=== PATIENT | female | born 1980 | race Caucasian/White ===

== ENCOUNTER → 2018-11-05 | Outpatient (CLI) | payer MEDICAID ==
--- NOTE | 2018-11-05 10:57 | WOMENS IMAGING REPORT ---
EXAM DESCRIPTION: BILAT SCREENING MAMMO W/CAD COMPLETED DATE/TIME: 11/05/2018 7:39 am REASON FOR STUDY: ROUTINE BILATERAL SCREENING;Z12.31 Z12.31 ENCNTR SCREEN MAMMOGRAM FOR MALIGNANT N EOPLASM OF CLOVER COMPARISON: 2013 TECHNIQUE: Standard craniocaudal and mediolateral oblique views of each breast recorded using [employer] acquisition. LIMITATIONS: None. FINDINGS: No suspicious masses, suspicious calcifications or architectural distortion. No areas of s uspicion. Read with the assistance of CAD. .[facility] - R2 Information Security Specialist Version 9.2 IMPRESSION: ASSESSMENT: Negative MAMMOGRAM. BIRADS 1 BREAST DENSITY: b. There are scattered areas of fibroglandular density. BIRAD: 1 NEGATIVE RECOMMENDATION: ROUTINE SCREENING COMMENT: The patient has been notified of the results by letter per [place] requirements. Additional no tification policies are in place for contacting patient with suspicious or incomplete findings. Quality ID #[id number]: The [employer] recommends an annual screening mammogram for women aged 40 years or over. This facility utilizes a reminder system to ensure that all patients receive reminder letters, and/or direct phone calls for appointments. This includes reminders for routine scr eening mammograms, diagnostic mammograms, or other Breast Imaging Interventions when appropriate. Th is patient will be placed in the appropriate reminder system. TECHNICAL DOCUMENTATION: FINDING NUMBER: (1) ASSESSMENT: (1) JOB ID: [id number] [employer]- All Rights Reserved Reading location - IP/workstation name: [email or web address]
== END ==
LOC: WI 08:25
PROVIDERS: ATTEND Family Medicine
DX: Z12.31 Encounter for screening mammogram for malignant neoplasm of breast (principal)
CPT/HCPCS: 77067

== ENCOUNTER 2019-08-17 20:51 | Emergency (ER) | payer MEDICAID ==
[2019-08-17] MEDS ORDERED: IPRATROPIUM/ALBUTEROL 0.5-2.5 MG/3 ML AMPUL NEB ONE (21:55)
[2019-08-17] MEDS ORDERED: PREDNISONE 20 MG TABLET PO ONE (21:58)
--- NOTE | 2019-08-17 21:59 | ER Document Report ---
ED Medical Screen (RME) - General Chief Complaint: Cold Symptoms Stated Complaint: COUGH,SORE THORAT,EAR PAIN Time Seen by Provider: 08/17/19 21:50 Primary Care Provider: MARBELLA GALINDO DO [Primary Care Provider] - Follow up as needed Mode of Arrival: Ambulatory Information source: Patient Notes: Patient presents complaining of sore throat cough and congestion for the past 7 days. Patient also complains of ear pain. No fever. Patient denies any nausea or vomiting. I have greeted and performed a rapid initial assessment of this patient. A comprehensive ED assessment and evaluation of the patient, analysis of test results and completion of the medical decision making process will be conducted by additional ED providers. TRAVEL OUTSIDE OF THE [place] IN LAST 30 DAYS: No - Related Data Allergies/Adverse Reactions: cefuroxime axetil [From Ceftin] Allergy (Intermediate, Verified 03/08/14 20:26) Hives Penicillins Allergy (Intermediate, Verified 03/08/14 20:26) Hives oseltamivir phosphate [From Tamiflu] Allergy (Verified 03/08/14 20:26) Sulfa (Sulfonamide Antibiotics) Allergy (Verified 03/08/14 20:26) Home Medications: Bupropion XL 300mg. CLonipine 0.1mg. Lisinopril 5mg. Phentermine 37.5mg. Premarin 0.625mg. Sertraline. Triamterene Past Medical History - Social History Chew tobacco use (# tins/day): No Frequency of alcohol use: None Drug Abuse: None - Past Medical History Cardiac Medical History: Reports: Hx Hypertension Denies: Hx Heart Attack Pulmonary Medical History: Denies: Hx Asthma, Hx Bronchitis, Hx COPD, Hx Pneumonia Neurological Medical History: Denies: Hx Cerebrovascular Accident, Hx Seizures Renal/ Medical History: Reports: Hx Kidney Stones GI Medical History: Musculoskeltal Medical History: Denies Hx Arthritis Infectious Medical History: Past Surgical History: Reports: Hx Appendectomy, Hx Section - x2, Hx Hysterectomy. Denies: Hx Pacemaker - Immunizations Hx Diphtheria, Pertussis, Tetanus Vaccination: Yes Physical Exam - Vital signs Vitals: Temp Pulse Resp BP Pulse Ox 98.1 F 96 20 129/70 H 99 08/17/19 21:06 08/17/19 21:06 08/17/19 21:06 08/17/19 21:06 08/17/19 21:06 - Respiratory Respiratory status: No respiratory distress Chest status: Pain with cough Breath sounds: Nonproductive cough, Wheezing Course - Vital Signs Vital signs: Temp Pulse Resp BP Pulse Ox 98.1 F 96 20 129/70 H 99 08/17/19 21:06 08/17/19 21:06 08/17/19 21:06 08/17/19 21:06 08/17/19 21:06 Doctor's Discharge - Discharge Referrals: MARBELLA GALINDO, [Primary Care Provider] - Follow up as needed
--- NOTE | 2019-08-17 23:10 | RADIOLOGY REPORT (SQ) ---
EXAM DESCRIPTION: XR CHEST 2 VIEWS COMPLETED DATE/TME: 08/17/2019 21:55 CLINICAL HISTORY: cough COMPARISON: None. FINDINGS: Frontal and lateral views of the chest. Cardiomediastinal silhouette: Normal size and contour. Lungs: No consolidation, pneumothorax, or pleural effusion. Likely represent granulomas. Bones: No acute osseous abnormality. Upper abdomen: No abnormality identified. IMPRESSION: 1. No acute pulmonary process identified.
[2019-08-18] MEDS ORDERED: PREDNISONE 20 MG TABLET ONE (02:28)
[2019-08-18] MEDS ORDERED: IPRATROPIUM/ALBUTEROL 0.5-2.5 MG/3 ML AMPUL NEB ONE (02:28)
--- NOTE | 2019-08-18 05:13 | ER Document Report ---
Entered by HARMAN BAKER SCRIBE 08/18/19 0425 Acting as scribe for:JUSTYN GARCIA MD ED General - General Chief Complaint: Cold Symptoms Stated Complaint: COUGH,SORE THORAT,EAR PAIN Time Seen by Provider: 08/17/19 21:50 Primary Care Provider: MARBELLA GALINDO DO [Primary Care Provider] - Follow up as needed Mode of Arrival: Ambulatory Information source: Patient Notes: 39-year-old female presents to the emergency department with nasal congestion for the past 7 days. Patient reports wheezing, body aches, cough with green sputum and green nasal drainage. Patient denies sore throat. Patient took NyQuil and DayQuil with no relief. TRAVEL OUTSIDE OF THE [place] IN LAST 30 DAYS: No - Related Data Allergies/Adverse Reactions: cefuroxime axetil [From Ceftin] Allergy (Intermediate, Verified 03/08/14 20:26) Hives Penicillins Allergy (Intermediate, Verified 03/08/14 20:26) Hives oseltamivir phosphate [From Tamiflu] Allergy (Verified 03/08/14 20:26) Sulfa (Sulfonamide Antibiotics) Allergy (Verified 03/08/14 20:26) Home Medications: Bupropion XL 300mg. CLonipine 0.1mg. Lisinopril 5mg. Phentermine 37.5mg. Premarin 0.625mg. Sertraline. Triamterene Past Medical History - General Information source: Patient - Social History Smoking Status: Never Smoker Cigarette use (# per day): No Chew tobacco use (# tins/day): No Frequency of alcohol use: None Drug Abuse: None Lives with: Friend Family History: Reviewed & Not Pertinent Patient has suicidal ideation: No Patient has homicidal ideation: No - Past Medical History Cardiac Medical History: Reports: Hx Hypertension Pulmonary Medical History: Renal/ Medical History: Reports: Hx Kidney Stones GI Medical History: Musculoskeletal Medical History: Infectious Medical History: Past Surgical History: Reports: Hx Appendectomy, Hx Section - x2, Hx Hysterectomy - Immunizations Hx Diphtheria, Pertussis, Tetanus Vaccination: Yes Review of Systems - Review of Systems Constitutional: No symptoms reported EENT: See HPI, Nose congestion, Nose discharge, Sinus pressure. denies: Throat pain Cardiovascular: No symptoms reported Respiratory: See HPI, Cough, Sputum, Wheezing Gastrointestinal: No symptoms reported Genitourinary: No symptoms reported Female Genitourinary: No symptoms reported Musculoskeletal: Other - Body Aches Skin: No symptoms reported Hematologic/Lymphatic: No symptoms reported Neurological/Psychological: No symptoms reported -: Yes All other systems reviewed and negative Physical Exam - Vital signs Vitals: Temp Pulse Resp BP Pulse Ox 98.1 F 96 20 129/70 H 99 08/17/19 21:06 08/17/19 21:06 08/17/19 21:06 08/17/19 21:06 08/17/19 21:06 - Notes Notes: Physical Exam: General: Alert, appears well. HEENT: Normocephalic. Atraumatic. PERRL. Extraocular movements intact. Oropharynx clear. Neck: Supple. Non-tender. Respiratory: No respiratory distress. Wheezes bilaterally. Cardiovascular: Regular rate and rhythm. Abdominal: Normal Inspection. Non-tender. No distension. Normal Bowel Sounds. Back: No gross abnormalities. Extremities: Moves all four extremities. Upper extremities: Normal inspection. Normal ROM. Lower extremities: Normal inspection. No edema. Normal ROM. Neurological: Normal cognition. AAOx4. Normal speech. Psychological: Normal affect. Normal Mood. Skin: Hot. Dry. Normal color. Course - Re-evaluation Re-evalutation: 08/18/19 05:10 Patient resting in bed pending her discharge. - Vital Signs Vital signs: Temp Pulse Resp BP Pulse Ox 98.0 F 88 20 132/74 H 98 08/18/19 00:29 08/18/19 00:29 08/18/19 00:29 08/18/19 00:29 08/18/19 00:29 - Diagnostic Test Radiology reviewed: Image reviewed, Reports reviewed Radiology results interpreted by me: 08/18/19 05:10 Chest x-ray shows no acute cardiopulmonary process. No infiltrates. Discharge - Discharge Clinical Impression: Upper respiratory infection, Acute bronchitis with bronchospasm Condition: Stable Disposition: HOME, SELF-CARE Instructions: Acetaminophen, Upper Respiratory Illness ([facility]) Prescriptions: Methylprednisolone [Medrol Dosepack (4 mg/Tab) 21 Tab/Dosepak] 4 mg PO ASDIR PRN #21 tab.ds.pk PRN Reason: Azithromycin [Zithromax 250 mg Tablet] 250 mg PO ASDIR PRN #6 tablet PRN Reason: Referrals: GALINDO,MARBELLA, DO [Primary Care Provider] - Follow up as needed I personally performed the services described in the documentation, reviewed and edited the documentation which was dictated to the scribe in my presence, and it accurately records my words and actions.
[2019-08-18 05:20] VITALS: BP 132/68
== END 2019-08-18 05:20 | disposition home or self-care (01) ==
LOC: ER 20:51
DX: J06.9 Acute upper respiratory infection, unspecified (principal); J20.9 Acute bronchitis, unspecified; R05 Cough; J02.9 Acute pharyngitis, unspecified; R09.81 Nasal congestion; R06.2 Wheezing; M79.10 Myalgia, unspecified site; R09.89 Other specified symptoms and signs involving the circulatory and respiratory systems; Z88.0 Allergy status to penicillin; Z88.2 Allergy status to sulfonamides; Z88.8 Allergy status to other drugs, medicaments and biological substances; Z79.899 Other long term (current) drug therapy; I10 Essential (primary) hypertension
CPT/HCPCS: 94640; 99283; 87070; 87880; 71046; J7512; J7620

== ENCOUNTER → 2019-12-18 | Outpatient (CLI) | payer MEDICAID ==
--- NOTE | 2019-12-18 15:11 | WOMENS IMAGING REPORT ---
EXAM DESCRIPTION: BILAT SCREENING MAMMO W/CAD IMAGES COMPLETED DATE/TIME: 12/18/2019 2:29 pm REASON FOR STUDY: Z12.31 ENCOUNTER FOR SCREENING MAMMOGRAM FOR MALIGNANT NEOPLASM OF BREAST Z12.31 ENCNTR SCREEN MAMMOGRAM FOR MALIGNANT NEOPLASM OF [place] COMPARISON: 11/05/2018 and 05/19/2014 EXAM PARAMETERS: Standard craniocaudal and mediolateral oblique views of each breast recorded using digital acquisition. Read with the assistance of CAD. .[facility] - R2 Auto [employer]cker Version 9.2 LIMITATIONS: None. FINDINGS: No suspicious masses, suspicious calcifications or architectural distortion. No areas of c oncern. IMPRESSION: NEGATIVE MAMMOGRAM. BIRADS 1 BREAST DENSITY: a. The breasts are almost entirely fatty. BIRAD: ASSESSMENT: 1 NEGATIVE RECOMMENDATION: ROUTINE SCREENING COMMENT: The patient has been notified of the results by letter per MQSA requirements. Additional no tification policies are in place for contacting patient with suspicious or incomplete findings. Quality ID #225: The [employer] recommends an annual screening mammogram for women aged 40 years or over. This facility utilizes a reminder system to ensure that all patients receive reminder letters, and/or direct phone calls for appointments. This includes reminders for routine scr eening mammograms, diagnostic mammograms, or other Breast Imaging Interventions when appropriate. Th is patient will be placed in the appropriate reminder system. TECHNICAL DOCUMENTATION: FINDING NUMBER: (1) ASSESSMENT: (1) JOB ID: [id number] 2010 [employer]- All Rights Reserved Reading location - IP/workstation name: [email or web address]
== END ==
LOC: WI 14:06
PROVIDERS: ATTEND Nurse Practitioner Family
DX: Z12.31 Encounter for screening mammogram for malignant neoplasm of breast (principal)
CPT/HCPCS: 77067